=== PATIENT | male | born 1970 | race Two or more races ===

== ENCOUNTER 2024-05-04 06:51 | Inpatient (IN) | payer BC, OTHER ==
[2024-05-04] VITALS (31 sets, daily range): BP systolic 87–143; BP diastolic 71–126; PULSE 68–92; RESP 15–29; TEMP 36.55848–37.33632; O2SAT 95–99
[~2024-05-04] VITALS: Ht 175.3 cm; Wt 77.2 kg
[2024-05-04] MEDS ORDERED: MORPHINE SULFATE 4 MG/ML INJ (FOR IV/IM USE) IV STA (06:55)
[2024-05-04] MEDS ORDERED: CLOPIDOGREL 75MG TABLET PO ONE (07:00)
[2024-05-04] MEDS ORDERED: HEPARIN 5000 UNITS/ML VIAL IV ONE (07:00)
[2024-05-04] MEDS ORDERED: HEPARIN 100 UNITS/1 ML VIAL IVF ONE (07:15)
[2024-05-04] MEDS ORDERED: IODIXANOL 320MG/ML 100 ML BOTTLE IV ONE ×2 (07:17→08:23)
[2024-05-04] MEDS ORDERED: HEPARIN 1000 UNITS/ML 10ML ONE ×2 (07:17→08:20)
[2024-05-04] MEDS ORDERED: LIDOCAINE HCL 1% 20ML VIAL ONE (07:17)
[2024-05-04 07:27] LABS: BASOPHILS % 0.6 % (0.0-2.0); HEMOGLOBIN. 14.9 g/dL (14.0-18.0); LYMPHOCYTES % 41.5 % (20.0-50.0); MEAN CORPUSCULAR HEMOGLOBIN 30.1 pg (28.0-32.0); MEAN CORPUSCULAR VOLUME 91.1 fL (80.0-94.0); MEAN PLATELET VOLUME 7.9 fl (7.4-10.4); NEUTROPHILS % 46.9 % (40.0-76.0); PLATELET 394 x1000/uL (130-400); RED BLOOD CELL COUNT 4.94 mill/uL (4.7-6.1); RED CELL DISTRIBUTION WIDTH 14.3 % (11.6-14.6); WHITE BLOOD COUNT 17.7 x1000/uL (4.5-11.0)
[2024-05-04 07:33] LABS: CHLORIDE 107 mEq/L (98-107); POTASSIUM 3.5 mEq/L (3.5-5.1); SODIUM 138 mEq/L (136-145)
[2024-05-04 07:34] LABS: CARBON DIOXIDE 21 mEq/L (21-32)
[2024-05-04] MEDS ORDERED: ATROPINE SULFATE 1MG/10ML SYR ONE ×2 (07:36→08:03)
[2024-05-04 07:39] LABS: CREATININE 1.5 mg/dL (0.6-1.3); GLUCOSE 252 mg/dL (70-105); UREA NITROGEN BLOOD 13 mg/dL (9-23)
[2024-05-04] MEDS ORDERED: FENTANYL CITRATE/PF 50MCG/ML 2ML VIAL ONE (07:39)
[2024-05-04] MEDS ORDERED: VERAPAMIL HCL 2.5 MG/1 ML 2ML VIAL IV ONE (07:47)
[2024-05-04] MEDS ORDERED: DOPAMINE 400MG/250ML PREMIX 250 ML IV ONE (07:55)
[2024-05-04] MEDS ORDERED: ONDANSETRON HCL 4MG/2ML INJ ONE (08:03)
[2024-05-04 08:35] LABS: TROPONIN I HIGH SENSITIVITY 191 ng/L (3.0-53)
[2024-05-04] MEDS ORDERED: MIDAZOLAM HCL 2 MG/2 ML VIAL ONE (08:37)
[2024-05-04] MEDS ORDERED: CLOPIDOGREL 75MG TABLET ONE (08:52)
[2024-05-04] MEDS ORDERED: ACETAMINOPHEN 325MG TABLET PO PRN ×3 (09:00→13:00)
[2024-05-04] MEDS ORDERED: ATROPINE SULFATE 1MG/10ML SYR IV PRN (09:00)
[2024-05-04] MEDS: SODIUM CHLORIDE 0.45% 1,000 ML IV SCH (10:18)
[2024-05-04] MEDS: CLOPIDOGREL 75MG TABLET PO SCH (10:22)
[2024-05-04] MEDS: ASPIRIN 325MG TABLET PO SCH (10:24)
[2024-05-04] MEDS ORDERED: ONDANSETRON HCL 4MG/2ML INJ IV PRN (13:00)
[2024-05-04] MEDS ORDERED: GUAIFENESIN 200MG/10ML SUGAR FREE UDC PO PRN (13:00)
[2024-05-04] MEDS ORDERED: MAGNESIUM/ALUMINUM HYDROXIDE/SIMETHICONE 30ML UDC PO PRN (13:00)
[2024-05-04] MEDS ORDERED: IPRATROPIUM/ALBUTEROL 0.5-3(2.5)MG/3ML NEB HHN PRN (13:00)
[2024-05-04] MEDS ORDERED: DOCUSATE SODIUM 100MG CAPSULE PO PRN (13:00)
[2024-05-04] MEDS: ENOXAPARIN 40MG/0.4ML SYR SUBCUT SCH (13:58)
[2024-05-04 15:42] LABS: *AMPHETAMINES SCREEN URINE NEGATIVE (NEGATIVE); *BARBITURATES SCREEN URINE NEGATIVE (NEGATIVE); *BENZODIAZEPINES SCREEN URINE PRESUMPTIVE POSITIVE (NEGATIVE); *COCAINE SCREEN URINE NEGATIVE (NEGATIVE); CANNABINOID URINE SCREEN NEGATIVE (NEGATIVE); ECSTASY MDMA SCREEN URINE NEGATIVE (NEGATIVE); METHADONE URINE SCREEN NEGATIVE (NEGATIVE); OPIATES URINE SCREEN NEGATIVE (NEGATIVE); PHENCYCLIDINE URINE SCREEN NEGATIVE (NEGATIVE)
[2024-05-04 17:05] LABS: TRIGLYCERIDE 384 mg/dL (0-150)
[2024-05-04 17:06] LABS: LDL CHOLESTEROL 162 mg/dL (5-100)
[2024-05-04 17:07] LABS: CHOLESTEROL 243 mg/dL (<200); HDL CHOLESTEROL 29 mg/dL (>55)
[2024-05-04 17:34] LABS: TROPONIN I HIGH SENSITIVITY 116878 ng/L (3.0-53)
[2024-05-04] MEDS: ATORVASTATIN CALCIUM 40MG TABLET PO SCH (20:41)
[2024-05-04] MEDS: FAMOTIDINE 20MG/2ML VIAL IV SCH (20:41)
[2024-05-04 21:45] LABS: TROPONIN I HIGH SENSITIVITY 114064 ng/L (3.0-53)
[2024-05-05] VITALS (14 sets, daily range): BP systolic 98–143; BP diastolic 70–84; PULSE 65–89; RESP 19–27; TEMP 36.89184–37.16964; O2SAT 94–100
[2024-05-05 03:44] LABS: TROPONIN I HIGH SENSITIVITY > 25000 ng/L (3.0-53)
[2024-05-05 05:46] LABS: CHLORIDE 109 mEq/L (98-107); POTASSIUM 4.1 mEq/L (3.5-5.1); SODIUM 138 mEq/L (136-145)
[2024-05-05 05:47] LABS: CALCIUM 8.4 mg/dL (8.7-10.4); CARBON DIOXIDE 24 mEq/L (21-32)
[2024-05-05 05:51] LABS: BASOPHILS % 0.3 % (0.0-2.0); EOSINOPHILS % 1.3 % (0.0-5.0); HEMATOCRIT. 35.9 % (42.0-52.0); HEMOGLOBIN. 12.2 g/dL (14.0-18.0); LYMPHOCYTES % 29.5 % (20.0-50.0); MEAN CORPUSCULAR HEMOGLOBIN 30.6 pg (28.0-32.0); MEAN CORPUSCULAR HGB CONC 33.9 g/dL (31.0-37.0); MEAN CORPUSCULAR VOLUME 90.3 fL (80.0-94.0); MEAN PLATELET VOLUME 7.7 fl (7.4-10.4); MONOCYTES % 8.6 % (2.0-8.0); NEUTROPHILS % 60.3 % (40.0-76.0); PLATELET 263 x1000/uL (130-400); RED BLOOD CELL COUNT 3.97 mill/uL (4.7-6.1); RED CELL DISTRIBUTION WIDTH 14.6 % (11.6-14.6); WHITE BLOOD COUNT 12.7 x1000/uL (4.5-11.0)
[2024-05-05 05:52] LABS: CREATININE 0.9 mg/dL (0.6-1.3); GLUCOSE 115 mg/dL (70-105); UREA NITROGEN BLOOD 12 mg/dL (9-23)
[2024-05-05 05:57] LABS: T4 FREE 1.02 ng/dL (0.89-1.76); THYROID STIMULATING HORMONE 0.43 uIU/mL (0.55-4.78)
[2024-05-05 06:21] LABS: TROPONIN I HIGH SENSITIVITY > 25000 ng/L (3.0-53)
[2024-05-05] MEDS: ASPIRIN 81MG TABLET PO SCH (08:59)
[2024-05-05] MEDS ORDERED: ASPIRIN 325MG TABLET PO SCH (09:00)
[2024-05-06] VITALS: BP 101/77; PULSE 86; RESP 18; TEMP 37.11408; O2SAT 96
[2024-05-06 04:00] VITALS: BP 114/73; PULSE 80; RESP 17; TEMP 36.72516; O2SAT 93
[2024-05-06 06:23] LABS: BASOPHILS % 0.7 % (0.0-2.0); EOSINOPHILS % 3.6 % (0.0-5.0); HEMATOCRIT. 37.2 % (42.0-52.0); HEMOGLOBIN. 12.2 g/dL (14.0-18.0); LYMPHOCYTES % 26.8 % (20.0-50.0); MEAN CORPUSCULAR HEMOGLOBIN 29.6 pg (28.0-32.0); MEAN CORPUSCULAR HGB CONC 32.8 g/dL (31.0-37.0); MEAN CORPUSCULAR VOLUME 90.3 fL (80.0-94.0); MEAN PLATELET VOLUME 7.9 fl (7.4-10.4); MONOCYTES % 10.4 % (2.0-8.0); NEUTROPHILS % 58.5 % (40.0-76.0); PLATELET 267 x1000/uL (130-400); RED BLOOD CELL COUNT 4.12 mill/uL (4.7-6.1); RED CELL DISTRIBUTION WIDTH 14.1 % (11.6-14.6); WHITE BLOOD COUNT 10.8 x1000/uL (4.5-11.0)
[2024-05-06 06:31] LABS: CHLORIDE 111 mEq/L (98-107); POTASSIUM 3.8 mEq/L (3.5-5.1); SODIUM 140 mEq/L (136-145)
[2024-05-06 06:32] LABS: CARBON DIOXIDE 23 mEq/L (21-32)
[2024-05-06 06:37] LABS: GLUCOSE 101 mg/dL (70-105); UREA NITROGEN BLOOD 8 mg/dL (9-23)
[2024-05-06 08:00] VITALS: BP 115/81; PULSE 83; RESP 20; O2SAT 96
[2024-05-06] MEDS ORDERED: NICO4GUM MT (10:05)
[2024-05-06] MEDS ORDERED: ASPI-1160 PO (10:05)
[2024-05-06] MEDS ORDERED: CLOP-31 PO (10:05)
[2024-05-06] MEDS ORDERED: NICO-645 TP (10:05)
[2024-05-06] MEDS ORDERED: LIP40 PO (10:05)
[2024-05-06 10:15] VITALS: BP 143/77; PULSE 79; TEMP 98.2; O2SAT 99
== END 2024-05-06 13:31 | disposition home or self-care (01) | DRG 321 ==
LOC: ER 07:30 → CVICU 11:11 → 3WST 05-05 11:53
PROVIDERS: ADMIT Internal Medicine; ATTEND Internal Medicine
PROC: 027035Z Dilation of Coronary Artery, One Artery with Two Drug-eluting Intraluminal Devices, Percutaneous Approach (ICD-10-PCS; principal; 2024-05-04)
PROC: 4A023N7 Measurement of Cardiac Sampling and Pressure, Left Heart, Percutaneous Approach (ICD-10-PCS; 2024-05-04)
PROC: B211YZZ Fluoroscopy of Multiple Coronary Arteries using Other Contrast (ICD-10-PCS; 2024-05-04)
DX: I21.19 ST elevation (STEMI) myocardial infarction involving other coronary artery of inferior wall (principal); R57.0 Cardiogenic shock; N17.9 Acute kidney failure, unspecified; I25.10 Atherosclerotic heart disease of native coronary artery without angina pectoris; F17.210 Nicotine dependence, cigarettes, uncomplicated; R73.03 Prediabetes; E78.00 Pure hypercholesterolemia, unspecified; Z79.02 Long term (current) use of antithrombotics/antiplatelets; Z79.82 Long term (current) use of aspirin; Z91.199 Patient's noncompliance with other medical treatment and regimen due to unspecified reason
CPT/HCPCS: 36415; 71045; 80048; 80061; 80305; 83036; 83880; 84439; 84443; 84484; 85025; 92941; 93005; 93306; 93458; 99291; C1725; C1769; C1874; C1887; C1893; J0461; J1265; J1642; J1644; J1650; J2250; J2405; J3010; J3490; Q9967